=== PATIENT | male | born 1950 | race Two or more races ===

== ENCOUNTER 2020-06-28 00:27 | Emergency (ER) | payer OTHER ==
[~2020-06-28] VITALS: Ht 175.3 cm; Wt 102.1 kg
[2020-06-28 01:05] VITALS: BP 138/84
[2020-06-28] MEDS ORDERED: NEOMYCIN-BACITRACIN-POLYM UNITDOSE PKG TOP OINT TOP ONE (01:15)
[2020-06-28] MEDS ORDERED: LIDOCAINE 1% HCL (LOCAL ANESTH.) INJ 20ML MDV ID ONE (01:15)
[2020-06-28] MEDS ORDERED: cefTRIAXone SOD 1,000 MG VL IM ONE (01:45)
== END 2020-06-28 01:14 | disposition home or self-care (01) ==
LOC: ER 00:27
DX: S61.210A Laceration without foreign body of right index finger without damage to nail, initial encounter (principal); X58.XXXA Exposure to other specified factors, initial encounter; Y93.89 Activity, other specified; Y92.89 Other specified places as the place of occurrence of the external cause; Y99.8 Other external cause status
CPT/HCPCS: 12002; 96372; 99283; J0696; J2001

== ENCOUNTER 2024-09-15 18:12 | Emergency (ER) | payer BC, OTHER ==
[~2024-09-15] VITALS: Ht 175.3 cm; Wt 102.0 kg
[2024-09-15 18:12] VITALS: BP 180/92; PULSE 72; RESP 18; O2SAT 97
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
--- NOTE | 2024-09-15 19:53 | DVH ---
EXAM: CT HEAD WITHOUT CONTRAST HISTORY: [facility] COMPARISON: None TECHNIQUE: Axial images were obtained and reformatted in coronal and sagittal planes. All CT scans at this medical facility are performed using dose modulation techniques as appropriate t o a performed exam including the following: Automated exposure control was utilized; adjustment of th e MA and/or KV according to patient size; and use of iterative reconstruction technique. CT Dose: CTDI volume is 66.34 mGy. Dose-length product is 1195.81 mGy*cm FINDINGS: Supratentorial Region: No evidence for large acute territorial ischemia. No intracranial hemorrhage is noted. Posterior Fossa: No acute abnormality. Brainstem: Unremarkable. Sellar/Suprasellar Region: Unremarkable. Ventricles, Cisterns, Sulci: Age-appropriate. Orbits: Unremarkable. Paranasal Sinuses: Unremarkable. Mastoid Air Cells: Unremarkable. Vasculature: Unremarkable. Bones/Soft Tissues: No acute abnormality. Other: None. IMPRESSION: 1. No acute intracranial process.
--- NOTE | 2024-09-15 20:09 | DVH ---
EXAM: CT CERVICAL WITHOUT CONTRAST INDICATION: [facility] EXAM DATE: 09/15/2024 07:28 PM COMPARISON: CT HEAD WITHOUT CONTRAST on DOS: 09/15/24 TECHNIQUE: Multiple axial CT images of the cervical spine were obtained using bone algorithm. Axial a nd coronal reformatting was done. Bone and soft tissue windows were reviewed. Radiation Dose Information: CT Dose: CTDI volume is 27.45 mGy. Dose-length product is 801.07 mGy*cm Findings: There is no evidence of an acute fracture or spondylolisthesis. The vertebral body heights are well-m aintained. The craniocervical junction and dens are intact. No evidence of degenerative disc disease. No neuroforaminal narrowing. No spinal canal stenosis. There is a normal cervical lordosis. The thyroid gland is unremarkable. The lung apices demonstrate no acute abnormality. The paraspinal a nd neck soft tissues appear within normal limits. C2-3: Normal C3-4: Normal C4-5: Normal C5-6: Normal C6-7: Normal C7-T1: Normal Impression: 1. No evidence of an acute fracture.
--- NOTE | 2024-09-15 20:10 | DVH ---
EXAM: XY R FEMUR XRAY CLINICAL HISTORY: [facility] COMPARISON: None TECHNIQUE: XY R FEMUR XRAY Findings/Impression: 2 views of the right femur. There is no evidence of an acute fracture, dislocation, blastic, or lytic lesions. No radiopaque foreign bodies. No superficial soft tissue abnormalities.
--- NOTE | 2024-09-15 20:12 | DVH ---
EXAM: XY R TIB FIB XRAY CLINICAL HISTORY: [facility] COMPARISON: None TECHNIQUE: XY R TIB FIB XRAY Findings/Impression: 2 views of the right tibia and fibula. There is no evidence of an acute fracture, dislocation, blastic, or lytic lesions. No radiopaque foreign bodies. No superficial soft tissue abnormalities.
--- NOTE | 2024-09-15 20:14 | DVH ---
EXAM: XY CHEST PORTABLE TECHNIQUE: Single frontal chest radiograph CLINICAL HISTORY: [facility] COMPARISON: None Findings/Impression: Frontal chest radiograph demonstrates no acute osseous or superficial soft tissue abnormalities. The trachea is midline. The cardiac silhouette and mediastinum are within normal limits. No pneumothorax, pleural effusions, or consolidations.
[2024-09-15] MEDS: IBUPROFEN 600 MG TAB PO ONE (22:03)
== END 2024-09-15 22:10 | disposition home or self-care (01) ==
LOC: EDBD 18:12 → ER 18:14
DX: S00.81XA Abrasion of other part of head, initial encounter (principal); M25.561 Pain in right knee; M79.661 Pain in right lower leg; F41.9 Anxiety disorder, unspecified; Z88.5 Allergy status to narcotic agent; V89.2XXA Person injured in unspecified motor-vehicle accident, traffic, initial encounter; Y93.I9 Activity, other involving external motion; Y92.89 Other specified places as the place of occurrence of the external cause; Y99.8 Other external cause status
CPT/HCPCS: 70450; 71045; 72125; 73590